=== PATIENT | male | born 1995 | race Two or more races ===

== ENCOUNTER 2018-08-06 03:09 | Emergency (ER) | payer SELFPAY ==
[~2018-08-06] VITALS: Ht 170.2 cm; Wt 54.4 kg
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
--- NOTE | 2018-08-06 03:33 | NUR ---
MD AT BEDSIDE FOR EVALUATION
[2018-08-06 03:39] VITALS: BP 124/72
== END 2018-08-06 03:40 | disposition home or self-care (01) ==
LOC: ER 03:11
DX: F10.129 Alcohol abuse with intoxication, unspecified (principal); Z60.2 Problems related to living alone; Y90.9 Presence of alcohol in blood, level not specified
CPT/HCPCS: A4606